=== PATIENT | male | born 1980 ===

== ENCOUNTER 2023-06-04 06:23 | Day surgery (SDC) | payer OTHER ==
[~2023-06-04] VITALS: Ht 172.7 cm; Wt 95.3 kg
== END 2023-06-04 17:45 | disposition home or self-care (01) ==
LOC: CIR.AMB 06:23
PROVIDERS: ATTEND Surgery
DX: K42.9 Umbilical hernia without obstruction or gangrene (principal); Z20.822 Contact with and (suspected) exposure to COVID-19
CPT/HCPCS: 49594; C1781